=== PATIENT | male | born 1970 | race Caucasian/White ===

== ENCOUNTER 2021-07-11 06:58 | Inpatient (IN) | payer OTHER ==
[2021-07-11] MEDS ORDERED: VANCOMYCIN 1,000 MG in DEXTROSE 5%-WATER - 250 ML IVPB ONE (08:18)
[2021-07-11] MEDS ORDERED: PIPERACILLIN/TAZOB 4.5 GM 4.5 GM in DEXTROSE 5%-WATER - 100 ML IVPB ONE (08:18)
[2021-07-11] MEDS ORDERED: SODIUM CHLORIDE 1,000 ML IV STA ×2 (08:19)
[2021-07-11] MEDS ORDERED: VANCOMYCIN 1 GRAM (PRE-DOCKED) 1,000 MG/250 ML BAG IVPB ONE (08:35)
[2021-07-11] MEDS ORDERED: PIPERACILLIN/TAZOB 4.5 GM 4.5 GM/100 ML BAG IVPB ONE (08:35)
[2021-07-11 08:59] LABS: HEMATOCRIT 34.9 % (35.4-49); HEMOGLOBIN 12.5 GM/dL (11.7-16.9); MCH 30.1 pg (25.7-33.7); MCHC 35.8 g/dl (32.0-35.9); MEAN CELL VOLUME 83.9 fl (80-96); MEAN PLT VOLUME 8.4 fl (7.5-11.1); PLATELET COUNT 111 10^3/uL (134-434); RBC 4.16 M/mm3 (4.00-5.60); RDW 14.8 % (11.9-15.9); WHITE BLOOD COUNT 9.9 K/mm3 (4.0-10.0)
[2021-07-11 09:09] LABS: INR 1.28 (0.83-1.09); PROTHROMBIN TIME (PATIENT) 14.7 SEC (9.7-13.0)
[2021-07-11 09:11] LABS: ACTIVATED PTT 26.5 SECONDS (25.2-36.5)
[2021-07-11 09:12] LABS: VENOUS BASE EXCESS 14.7 mmol/L (-2-2); VENOUS O2 SATURATION 98.4 % (70-80); VENOUS PCO2 32.3 mmHg (38-52)
[2021-07-11 09:14] LABS: VENOUS PH 7.664 (7.310-7.410)
[2021-07-11 09:28] LABS: CHLORIDE 66 mmol/L (98-107)
[2021-07-11 09:30] LABS: CALCIUM 8.8 mg/dL (8.5-10.1)
[2021-07-11 09:31] LABS: BLOOD UREA NITROGEN 34.1 mg/dL (7-18); CO2 38 mmol/L (21-32); GLUCOSE,RANDOM 98 mg/dL (74-106); MAGNESIUM 3.3 mg/dL (1.8-2.4)
[2021-07-11 09:33] LABS: CREATININE 2.3 mg/dL (0.55-1.3)
[2021-07-11 09:34] LABS: PHOSPHOROUS 3.9 mg/dL (2.5-4.9); SGOT/AST 120 U/L (15-37); SGPT/ALT 39 U/L (13-61)
[2021-07-11 09:35] LABS: BILIRUBIN,TOTAL 0.8 mg/dL (0.2-1); TOT PROT 5.6 g/dl (6.4-8.2)
[2021-07-11 09:36] LABS: ALK PHOS 104 U/L (45-117)
[2021-07-11 09:42] LABS: ANION GAP 16 MMOL/L (8-16); SODIUM 120 mmol/L (136-145)
[2021-07-11] MEDS ORDERED: SODIUM CHLORIDE 3% 500 ML/500 ML INFUS.BAG IV ONE ×2 (10:33→10:35)
[2021-07-11] MEDS ORDERED: SODIUM CHLORIDE 3% 500 ML/100 ML INFUS.BAG IV ONE ×2 (10:37→10:38)
[2021-07-11 10:58] LABS: LACTIC ACID 6.8 mmol/L (0.4-2.0)
[2021-07-11] MEDS ORDERED: KCL 10 MEQ IVPB 10 MEQ/100 ML INFUS.BAG IVPB ONE (11:06)
[2021-07-11 11:52] LABS: ANISOCYTOSIS 0; MACROCYTOSIS 0
[2021-07-11 11:53] LABS: PLATELET ESTIMATE SLT DECREASE
[2021-07-11] MEDS: KCL 10 MEQ IVPB 10 MEQ/100 ML INFUS.BAG IVPB SCH ×3 (12:26→12:55)
[2021-07-11 12:33] LABS: CHLORIDE 81 mmol/L (98-107); SODIUM 128 mmol/L (136-145)
[2021-07-11 12:36] LABS: BLOOD UREA NITROGEN 29.9 mg/dL (7-18); CO2 35 mmol/L (21-32); GLUCOSE,RANDOM 86 mg/dL (74-106)
[2021-07-11 12:38] LABS: CREATININE 1.9 mg/dL (0.55-1.3); SGPT/ALT 29 U/L (13-61)
[2021-07-11 12:39] LABS: SGOT/AST 90 U/L (15-37)
[2021-07-11 12:40] LABS: BILIRUBIN,TOTAL 0.7 mg/dL (0.2-1); TOT PROT 4.2 g/dl (6.4-8.2)
[2021-07-11 12:43] LABS: ALBUMIN 1.5 g/dl (3.4-5.0); ALK PHOS 72 U/L (45-117); ANION GAP 12 MMOL/L (8-16); CALCIUM 6.8 mg/dL (8.5-10.1)
[2021-07-11] MEDS ORDERED: POTASSIUM CHLORIDE 40 MEQ in LACTATED RINGERS SOLUTION 1,000 ML IV ONE (15:10)
[2021-07-11 15:12] LABS: COCAINE, UR NEGATIVE (NEGATIVE); METHADONE, UR NEGATIVE (NEGATIVE); OPIATES, URI NEGATIVE (NEGATIVE); PHENCYCLIDINE,URINE NEGATIVE (NEGATIVE); URINE AMPHETAMINES NEGATIVE (NEGATIVE); URINE BARBITURATES NEGATIVE (NEGATIVE); URINE BENZODIAZEPINES NEGATIVE (NEGATIVE)
[2021-07-11] MEDS ORDERED: POTASSIUM CHLORIDE 20 MEQ PREMIX IVPB 100 ML IVPB SCH ×2 (15:15→19:00)
[2021-07-11] MEDS ORDERED: LORazepam 2 MG/ML SDV VIAL IVPUSH ONE (15:41)
[2021-07-11] MEDS: HEPARIN NA (PORCINE) 5,000 UNITS/ML 1ML VIAL SQ SCH (17:10)
[2021-07-11 17:11] LABS: ARTERIAL BLD GAS O2 SATURATION 97.2 % (95-98); ARTERIAL BLOOD GAS BASE EXCESS 11.1 mmol/L (-2-2); ARTERIAL BLOOD GAS PO2 80.2 mmHg (80-100)
[2021-07-11 17:12] LABS: ALLENS TEST POSITIVE
[2021-07-11] MEDS: NOREPINEPHRINE BITARTRATE 16,000 MCG in SODIUM CHLORIDE 484 ML IV SCH (17:15)
[2021-07-11 18:13] LABS: CHLORIDE 77 mmol/L (98-107); SODIUM 125 mmol/L (136-145)
[2021-07-11 18:15] LABS: CALCIUM 7.5 mg/dL (8.5-10.1)
[2021-07-11 18:16] LABS: BLOOD UREA NITROGEN 35.8 mg/dL (7-18); CO2 33 mmol/L (21-32); GLUCOSE,RANDOM 98 mg/dL (74-106)
[2021-07-11 18:19] LABS: CREATININE 2.1 mg/dL (0.55-1.3)
[2021-07-11 18:22] LABS: N-TERMINAL BNP 1970.1 pg/ml (5-125)
[2021-07-11 18:26] LABS: ANION GAP 16 MMOL/L (8-16)
[2021-07-11] MEDS ORDERED: PNEUMOC 13-VAL CONJ-DIP CRM/PF 0.5 ML DISP.SYRIN IM ONE (18:30)
[2021-07-11] MEDS ORDERED: VANCOMYCIN HCL 1,500 MG in DEXTROSE 5%-WATER - 250 ML IVPB SCH (19:00)
[2021-07-11] MEDS: POTASSIUM CHLORIDE 20 MEQ PREMIX IVPB 100 ML IVPB SCH ×3 (20:28→21:31)
[2021-07-11] MEDS ORDERED: PIPERACILLIN/TAZOBACTAM 4.5 GM VIAL IVPB ONE (20:44)
[2021-07-11] MEDS ORDERED: DEXTROSE 5%-WATER 100 ML IVPB ONE (20:44)
[2021-07-11 21:06] LABS: URINE APPEARANCE TURBID; URINE BILIRUBIN MODERATE (NEGATIVE); URINE COLOR DK YELLOW; URINE GLUCOSE (UA) NEGATIVE (NEGATIVE)
[2021-07-11 21:07] LABS: URINE KETONE NEGATIVE (NEGATIVE); URINE LEUK ESTERASE 3+ (NEGATIVE); URINE NITRITE NEGATIVE (NEGATIVE); URINE PROTEIN 100 (NEGATIVE)
[2021-07-11 21:08] LABS: EPI CELLS 17 /uL (0-25.1); HYALINE CASTS 11 /uL (0-3.1); URINE BACTERIA 70 /uL (0-1359); URINE RBC 1397 /uL (0-23.9); URINE WBC 1501 /uL (0-25.8)
[2021-07-11] MEDS: VANCOMYCIN HCL 1,500 MG in DEXTROSE 5%-WATER - 250 ML IVPB SCH (21:28)
[2021-07-11] MEDS: PIPERACILLIN/TAZOB 4.5 GM 4.5 GM in DEXTROSE 5%-WATER 100 ML IVPB SCH (21:29)
[2021-07-11] MEDS: MUPIROCIN 2% TOPICAL OINTMENT FOR DECOLONIZATION NS SCH (21:29)
[2021-07-11] MEDS: CHLORHEXIDINE GLUCONATE 4% CLEANSER FOR DECOLONIZATION TP SCH (21:31)
[2021-07-11 22:21] LABS: MAGNESIUM 2.5 mg/dL (1.8-2.4)
[2021-07-11 22:25] LABS: PHOSPHOROUS 4.8 mg/dL (2.5-4.9)
[2021-07-12] MEDS ORDERED: DEXTROSE 5%-WATER 100 ML IVPB ONE ×3 (00:19→17:08)
[2021-07-12] MEDS ORDERED: PIPERACILLIN/TAZOBACTAM 4.5 GM VIAL IVPB ONE ×4 (00:19→17:08)
[2021-07-12] MEDS: LORazepam 2 MG/ML SDV VIAL IVPUSH PRN ×2 (00:23→17:40)
[2021-07-12] MEDS: HEPARIN NA (PORCINE) 5,000 UNITS/ML 1ML VIAL SQ SCH ×3 (02:33→17:35)
[2021-07-12] MEDS: PIPERACILLIN/TAZOB 4.5 GM 4.5 GM in DEXTROSE 5%-WATER 100 ML IVPB SCH ×3 (02:34→17:37)
[2021-07-12 06:48] LABS: ARTERIAL BLD GAS O2 SATURATION 90.3 % (95-98); ARTERIAL BLOOD GAS BASE EXCESS 9.5 mmol/L (-2-2); ARTERIAL BLOOD GAS PO2 49.2 mmHg (80-100)
[2021-07-12 06:51] LABS: ALLENS TEST POSITIVE
[2021-07-12 07:51] LABS: BASO % 0.5 % (0-2.0); EOS % 0.2 % (0-4.5); HEMATOCRIT 32.5 % (35.4-49); HEMOGLOBIN 11.1 GM/dL (11.7-16.9); LYMPH % 10.3 % (8-40); MCH 29.4 pg (25.7-33.7); MEAN CELL VOLUME 86.5 fl (80-96); MEAN PLT VOLUME 9.2 fl (7.5-11.1); MONO % 4.7 % (3.8-10.2); NEUT % 84.3 % (42.8-82.8); PLATELET COUNT 106 10^3/uL (134-434); RBC 3.76 M/mm3 (4.00-5.60); RDW 14.5 % (11.9-15.9); WHITE BLOOD COUNT 9.2 K/mm3 (4.0-10.0)
[2021-07-12] MEDS ORDERED: VANCOMYCIN PREMIX 1.5 GM 1,500 MG/300 ML BAG IVPB SCH (07:58)
[2021-07-12 08:42] LABS: CHLORIDE 81 mmol/L (98-107); SODIUM 127 mmol/L (136-145)
[2021-07-12 08:47] LABS: BLOOD UREA NITROGEN 37.1 mg/dL (7-18); CALCIUM 7.8 mg/dL (8.5-10.1); CO2 33 mmol/L (21-32); GLUCOSE,RANDOM 90 mg/dL (74-106); MAGNESIUM 2.8 mg/dL (1.8-2.4)
[2021-07-12 08:50] LABS: CREATININE 1.9 mg/dL (0.55-1.3)
[2021-07-12 08:51] LABS: ANION GAP 13 MMOL/L (8-16); PHOSPHOROUS 4.5 mg/dL (2.5-4.9)
[2021-07-12] MEDS ORDERED: POTASSIUM CHLORIDE 20 MEQ PREMIX IVPB 100 ML IVPB SCH (08:52)
[2021-07-12] MEDS: POTASSIUM CHLORIDE 20 MEQ PREMIX IVPB 100 ML IVPB SCH ×8 (09:20→22:47)
[2021-07-12] MEDS: VANCOMYCIN HCL 1,500 MG in DEXTROSE 5%-WATER - 250 ML IVPB SCH (09:48)
[2021-07-12] MEDS: MUPIROCIN 2% TOPICAL OINTMENT FOR DECOLONIZATION NS SCH ×2 (10:58→22:42)
[2021-07-12 12:08] LABS: SARS-CoV-2 NAA Not Detected (Not Detected)
[2021-07-12] MEDS ORDERED: LORazepam 2 MG/ML SDV VIAL IVPUSH ONE (12:58)
[2021-07-12] MEDS ORDERED: POTASSIUM CHLORIDE 40 MEQ in LACTATED RINGERS SOLUTION 1,000 ML IV ONE (14:00)
[2021-07-12 14:40] LABS: CHLORIDE 86 mmol/L (98-107); SODIUM 129 mmol/L (136-145)
[2021-07-12 14:41] LABS: CALCIUM 7.2 mg/dL (8.5-10.1); CALCIUM 7.7 mg/dL (8.5-10.1); CHLORIDE 88 mmol/L (98-107); SODIUM 131 mmol/L (136-145)
[2021-07-12 14:42] LABS: CO2 31 mmol/L (21-32); GLUCOSE,RANDOM 83 mg/dL (74-106); GLUCOSE,RANDOM 87 mg/dL (74-106)
[2021-07-12 14:45] LABS: CREATININE 1.5 mg/dL (0.55-1.3)
[2021-07-12 14:47] LABS: ANION GAP 13 MMOL/L (8-16)
[2021-07-12] MEDS: THIAMINE HCL 200 MG/2 ML VIAL IVPB SCH (14:54)
[2021-07-12 14:58] LABS: ANION GAP 12 MMOL/L (8-16)
[2021-07-12 15:43] VITALS: BMI 27.4
[2021-07-12] MEDS: NOREPINEPHRINE BITARTRATE 16,000 MCG in SODIUM CHLORIDE 484 ML IV SCH (17:34)
[2021-07-12] MEDS: CHLORHEXIDINE GLUCONATE 4% CLEANSER FOR DECOLONIZATION TP SCH (22:42)
[2021-07-13 01:34] LABS: CALCIUM 7.5 mg/dL (8.5-10.1)
[2021-07-13 01:35] LABS: BLOOD UREA NITROGEN 26.8 mg/dL (7-18)
[2021-07-13 01:38] LABS: CREATININE 1.3 mg/dL (0.55-1.3)
[2021-07-13] MEDS ORDERED: DEXTROSE 5%-WATER 100 ML IVPB ONE (01:51)
[2021-07-13] MEDS ORDERED: PIPERACILLIN/TAZOBACTAM 4.5 GM VIAL IVPB ONE (01:51)
[2021-07-13] MEDS: HEPARIN NA (PORCINE) 5,000 UNITS/ML 1ML VIAL SQ SCH ×3 (02:31→17:08)
[2021-07-13] MEDS: PIPERACILLIN/TAZOB 4.5 GM 4.5 GM in DEXTROSE 5%-WATER 100 ML IVPB SCH (02:31)
[2021-07-13] MEDS: SODIUM CHLORIDE 1,000 ML IV SCH (06:56)
[2021-07-13 07:25] LABS: BASO % 0.6 % (0-2.0); EOS % 0.2 % (0-4.5); HEMATOCRIT 31.9 % (35.4-49); HEMOGLOBIN 10.8 GM/dL (11.7-16.9); LYMPH % 10.6 % (8-40); MCH 29.6 pg (25.7-33.7); MCHC 33.8 g/dl (32.0-35.9); MEAN CELL VOLUME 87.5 fl (80-96); MEAN PLT VOLUME 8.9 fl (7.5-11.1); MONO % 4.5 % (3.8-10.2); NEUT % 84.1 % (42.8-82.8); PLATELET COUNT 82 10^3/uL (134-434); RBC 3.65 M/mm3 (4.00-5.60); RDW 14.4 % (11.9-15.9); WHITE BLOOD COUNT 7.6 K/mm3 (4.0-10.0)
[2021-07-13 07:42] LABS: CALCIUM 7.4 mg/dL (8.5-10.1)
[2021-07-13 07:43] LABS: BLOOD UREA NITROGEN 26.3 mg/dL (7-18); MAGNESIUM 2.5 mg/dL (1.8-2.4)
[2021-07-13 07:46] LABS: CREATININE 1.1 mg/dL (0.55-1.3)
[2021-07-13 07:47] LABS: PHOSPHOROUS 2.6 mg/dL (2.5-4.9)
[2021-07-13 08:38] LABS: ARTERIAL BLD GAS O2 SATURATION 97.1 % (95-98); ARTERIAL BLOOD GAS PO2 73.7 mmHg (80-100)
[2021-07-13 08:45] LABS: ALLENS TEST POSITIVE
[2021-07-13 08:46] LABS: ARTERIAL BLOOD GAS pH 7.618 (7.350-7.450)
[2021-07-13] MEDS: MUPIROCIN 2% TOPICAL OINTMENT FOR DECOLONIZATION NS SCH ×2 (09:09→21:01)
[2021-07-13] MEDS: THIAMINE HCL 200 MG/2 ML VIAL IVPB SCH (09:10)
[2021-07-13] MEDS: KCL 10 MEQ IVPB 10 MEQ/100 ML INFUS.BAG IVPB SCH ×4 (10:48→18:13)
[2021-07-13] MEDS: LORazepam 2 MG/ML SDV VIAL IVPUSH PRN (11:52)
[2021-07-13 16:53] LABS: CALCIUM 7.6 mg/dL (8.5-10.1)
[2021-07-13 16:54] LABS: BLOOD UREA NITROGEN 24.6 mg/dL (7-18)
[2021-07-13 16:57] LABS: CREATININE 1.1 mg/dL (0.55-1.3)
[2021-07-13] MEDS: ACETAMINOPHEN 1000 MG/100 ML BAG IVPB PRN (18:32)
[2021-07-13 20:56] LABS: BLOOD UREA NITROGEN 25.2 mg/dL (7-18); CALCIUM 7.6 mg/dL (8.5-10.1); CREATININE 0.9 mg/dL (0.55-1.3)
[2021-07-13] MEDS: CHLORHEXIDINE GLUCONATE 4% CLEANSER FOR DECOLONIZATION TP SCH (21:01)
[2021-07-14 07:18] LABS: CALCIUM 7.4 mg/dL (8.5-10.1)
[2021-07-14 07:19] LABS: BLOOD UREA NITROGEN 19.9 mg/dL (7-18); MAGNESIUM 2.1 mg/dL (1.8-2.4)
[2021-07-14 07:20] LABS: BASO % 0.4 % (0-2.0); EOS % 0.6 % (0-4.5); HEMOGLOBIN 10.6 GM/dL (11.7-16.9); LYMPH % 10.6 % (8-40); MCH 30.4 pg (25.7-33.7); MCHC 34.3 g/dl (32.0-35.9); MEAN CELL VOLUME 88.6 fl (80-96); MEAN PLT VOLUME 8.7 fl (7.5-11.1); MONO % 5.1 % (3.8-10.2); NEUT % 83.3 % (42.8-82.8); PLATELET COUNT 63 10^3/uL (134-434); RDW 14.4 % (11.9-15.9); WHITE BLOOD COUNT 9.8 K/mm3 (4.0-10.0)
[2021-07-14 07:22] LABS: CREATININE 0.6 mg/dL (0.55-1.3)
[2021-07-14 07:23] LABS: PHOSPHOROUS 3.4 mg/dL (2.5-4.9)
[2021-07-14] MEDS: LORazepam 2 MG/ML SDV VIAL IVPUSH PRN ×3 (09:18→19:45)
[2021-07-14] MEDS: KCL 10 MEQ IVPB 10 MEQ/100 ML INFUS.BAG IVPB SCH (09:33)
[2021-07-14] MEDS: MUPIROCIN 2% TOPICAL OINTMENT FOR DECOLONIZATION NS SCH ×2 (09:33→21:39)
[2021-07-14] MEDS: THIAMINE HCL 200 MG/2 ML VIAL IVPB SCH (09:34)
[2021-07-14] MEDS ORDERED: MULTIVITAMINS (DAILY MVI) TABLET (FP) PO SCH (10:00)
[2021-07-14] MEDS: SODIUM CHLORIDE 1,000 ML IV SCH (13:07)
[2021-07-14] MEDS: CHLORHEXIDINE GLUCONATE 4% CLEANSER FOR DECOLONIZATION TP SCH (21:39)
[2021-07-14] MEDS: NYSTATIN 100,000 UNIT/GM TOPICAL CREAM 15 GM TUBE TP SCH (21:40)
[2021-07-14] MEDS: ACETAMINOPHEN 1000 MG/100 ML BAG IVPB PRN (21:41)
[2021-07-15] MEDS ORDERED: SODIUM CHLORIDE 1,000 ML IV SCH (05:04)
[2021-07-15] MEDS ORDERED: ACETAMINOPHEN 1000 MG/100 ML BAG IVPB PRN (05:04)
[2021-07-15 09:48] LABS: BASO % 0.7 % (0-2.0); EOS % 1.1 % (0-4.5); HEMATOCRIT 28.6 % (35.4-49); HEMOGLOBIN 9.7 GM/dL (11.7-16.9); LYMPH % 12.7 % (8-40); MCH 30.2 pg (25.7-33.7); MCHC 33.8 g/dl (32.0-35.9); MEAN CELL VOLUME 89.2 fl (80-96); MEAN PLT VOLUME 9.1 fl (7.5-11.1); MONO % 6.7 % (3.8-10.2); NEUT % 78.8 % (42.8-82.8); PLATELET COUNT 55 10^3/uL (134-434); RBC 3.21 M/mm3 (4.00-5.60); RDW 14.6 % (11.9-15.9); WHITE BLOOD COUNT 9.5 K/mm3 (4.0-10.0)
[2021-07-15] MEDS ORDERED: MUPIROCIN 2% TOPICAL OINTMENT FOR DECOLONIZATION NS SCH (10:00)
[2021-07-15 10:07] LABS: MAGNESIUM 1.9 mg/dL (1.8-2.4)
[2021-07-15 10:11] LABS: PHOSPHOROUS 4.1 mg/dL (2.5-4.9)
[2021-07-15] MEDS: MULTIVITAMINS (DAILY MVI) TABLET (FP) PO SCH ×2 (10:18→10:30)
[2021-07-15] MEDS: THIAMINE HCL 200 MG/2 ML VIAL IVPB SCH (10:18)
[2021-07-15 13:17] LABS: CALCIUM 7.6 mg/dL (8.5-10.1)
[2021-07-15 13:18] LABS: BLOOD UREA NITROGEN 13.5 mg/dL (7-18)
[2021-07-15 13:21] LABS: CREATININE 0.5 mg/dL (0.55-1.3)
[2021-07-15] MEDS ORDERED: POTASSIUM CHLORIDE TABS 20 MEQ TABLET.ER (FP) PO ONE (13:28)
[2021-07-15] MEDS: LORazepam 2 MG/ML SDV VIAL IVPUSH PRN ×2 (13:36→17:21)
[2021-07-15] MEDS ORDERED: D5-1/2NS+20 MEQ KCL - 20 MEQ/1,000 ML INFUS.BAG IV SCH (13:45)
[2021-07-15 13:53] LABS: INR 1.2 (0.83-1.09); PROTHROMBIN TIME (PATIENT) 13.8 SEC (9.7-13.0)
[2021-07-15 13:56] LABS: ACTIVATED PTT 29.2 SECONDS (25.2-36.5)
[2021-07-15] MEDS: KCL 10 MEQ IVPB 10 MEQ/100 ML INFUS.BAG IVPB SCH ×3 (14:10→17:14)
[2021-07-15] MEDS: NYSTATIN 100,000 UNIT/GM TOPICAL CREAM 15 GM TUBE TP SCH ×2 (17:15→23:51)
[2021-07-15] MEDS ORDERED: CHLORHEXIDINE GLUCONATE 4% CLEANSER FOR DECOLONIZATION TP SCH (22:00)
[2021-07-16] MEDS: D5-1/2NS+20 MEQ KCL - 20 MEQ/1,000 ML INFUS.BAG IV SCH ×2 (00:11→12:54)
[2021-07-16] MEDS: LORazepam 2 MG/ML SDV VIAL IVPUSH PRN ×3 (00:47→12:24)
[2021-07-16] MEDS: NYSTATIN 100,000 UNIT/GM TOPICAL CREAM 15 GM TUBE TP SCH ×2 (09:38→21:01)
[2021-07-16] MEDS: MULTIVITAMINS (DAILY MVI) TABLET (FP) PO SCH (09:38)
[2021-07-16] MEDS: THIAMINE HCL 200 MG/2 ML VIAL IVPB SCH ×2 (09:53→21:01)
[2021-07-16] MEDS ORDERED: BUDESONIDE/FORMETEROL FUMARATE 80/4.5 mcg INHALER IH SCH (10:00)
[2021-07-16 11:19] LABS: BASO % 0.9 % (0-2.0); HEMATOCRIT 32.9 % (35.4-49); HEMOGLOBIN 10.9 GM/dL (11.7-16.9); LYMPH % 17.3 % (8-40); MCH 29.9 pg (25.7-33.7); MCHC 33.3 g/dl (32.0-35.9); MEAN CELL VOLUME 89.9 fl (80-96); MEAN PLT VOLUME 8.4 fl (7.5-11.1); MONO % 8.2 % (3.8-10.2); NEUT % 71.6 % (42.8-82.8); PLATELET COUNT 66 10^3/uL (134-434); RBC 3.66 M/mm3 (4.00-5.60); RDW 14.5 % (11.9-15.9); WHITE BLOOD COUNT 7.3 K/mm3 (4.0-10.0)
[2021-07-16 11:36] LABS: BLOOD UREA NITROGEN 8.9 mg/dL (7-18); CALCIUM 8.1 mg/dL (8.5-10.1); MAGNESIUM 1.8 mg/dL (1.8-2.4)
[2021-07-16 11:39] LABS: CREATININE 0.6 mg/dL (0.55-1.3); PHOSPHOROUS 2.7 mg/dL (2.5-4.9)
[2021-07-16 11:41] LABS: BILIRUBIN,TOTAL 0.5 mg/dL (0.2-1)
[2021-07-16 11:43] LABS: ALBUMIN 1.8 g/dl (3.4-5.0)
[2021-07-16] MEDS: ALBUTEROL SO4 2.5/IPRATROPIUM 0.5 INH SOL 3 ML VIAL.NEB. NEB SCH ×2 (12:06→15:08)
[2021-07-16] MEDS: ALBUTEROL SO4 HFA INHALER IH SCH ×2 (12:40→13:00)
[2021-07-16] MEDS ORDERED: POTASSIUM CHLORIDE 10 MEQ PREMIX IVPB (POTASSIUM RIDER) IVPB SCH (12:45)
[2021-07-16] MEDS ORDERED: PANTOPRAZOLE SODIUM 40 MG VIAL IVPUSH SCH (13:00)
[2021-07-16] MEDS ORDERED: MULTIVIT INJ. ADULT COMBO WITH VIT K 1 COMBO 10 ML VIAL IV SCH (13:00)
[2021-07-16] MEDS ORDERED: THIAMINE HCL 200 MG/2 ML VIAL IVPB ONE (14:00)
[2021-07-16] MEDS ORDERED: PIPERACILLIN/TAZOBACTAM 3.375 GM VIAL IVPB ONE ×2 (14:13→19:38)
[2021-07-16] MEDS ORDERED: DEXTROSE 5%-WATER - 50 ML IVPB ONE ×2 (14:13→19:38)
[2021-07-16] MEDS ORDERED: PIPERACILLIN/TAZOB 3.375 GM 3.375 GM in DEXTROSE 5%-WATER - 50 ML IVPB ONE (14:15)
[2021-07-16 14:32] LABS: ARTERIAL BLD GAS O2 SATURATION 95.3 % (95-98); ARTERIAL BLOOD GAS BASE EXCESS 5.4 mmol/L (-2-2); ARTERIAL BLOOD GAS PO2 68.1 mmHg (80-100); ARTERIAL BLOOD GAS pH 7.518 (7.350-7.450)
[2021-07-16 14:33] LABS: ALLENS TEST POSITIVE
[2021-07-16] MEDS ORDERED: SUCCINYLCHOLINE CHLORIDE 200 MG/10 ML VIAL ONE (14:55)
[2021-07-16] MEDS ORDERED: ETOMIDATE 20 MG/10 ML AMPUL IVPUSH ONE ×2 (14:55→15:45)
[2021-07-16] MEDS ORDERED: PROPOFOL 1,000,000 MCG/100 ML VIAL ONE (15:23)
[2021-07-16] MEDS ORDERED: SUCCINYLCHOLINE CHLORIDE 200 MG/10 ML SYRINGE IVPUSH ONE (15:45)
[2021-07-16] MEDS: PROPOFOL 1,000,000 MCG/100 ML VIAL IVPB SCH ×2 (15:46→20:01)
[2021-07-16] MEDS ORDERED: LACTATED RINGERS SOLUTION 1,000 ML/1,000 ML INFUS.BAG IV ONE (16:04)
[2021-07-16] MEDS: MIDAZOLAM IN 0.9 % SOD.CHLORID 100 MG/100 ML PLAST..BAG IVPB SCH (16:19)
[2021-07-16] MEDS: KCL 10 MEQ IVPB 10 MEQ/100 ML INFUS.BAG IVPB SCH ×3 (17:19→18:31)
[2021-07-16] MEDS ORDERED: ROCURONIUM BROMIDE 50 MG/5 ML VIAL IV ONE (17:46)
[2021-07-16] MEDS: PIPERACILLIN/TAZOB 3.375 GM 3.375 GM in DEXTROSE 5%-WATER - 50 ML IVPB SCH (20:00)
[2021-07-16] MEDS: AMINO ACIDS 4.25%/D5W 1,000 ML IV SCH (20:00)
[2021-07-16] MEDS: MUPIROCIN 2% TOPICAL OINTMENT FOR DECOLONIZATION NS SCH (21:00)
[2021-07-16] MEDS: CHLORHEXIDINE GLUCONATE 4% CLEANSER FOR DECOLONIZATION TP SCH (21:01)
[2021-07-17] MEDS ORDERED: PIPERACILLIN/TAZOBACTAM 3.375 GM VIAL IVPB ONE ×2 (00:33→08:48)
[2021-07-17] MEDS ORDERED: DEXTROSE 5%-WATER - 50 ML IVPB ONE ×2 (00:33→08:49)
[2021-07-17] MEDS: PROPOFOL 1,000,000 MCG/100 ML VIAL IVPB SCH ×5 (00:50→22:55)
[2021-07-17] MEDS: PIPERACILLIN/TAZOB 3.375 GM 3.375 GM in DEXTROSE 5%-WATER - 50 ML IVPB SCH (01:12)
[2021-07-17] MEDS: AMINO ACIDS 4.25%/D5W 1,000 ML IV SCH (01:52)
[2021-07-17] MEDS: THIAMINE HCL 200 MG/2 ML VIAL IVPB SCH ×3 (05:02→22:47)
[2021-07-17 07:03] LABS: BASO % 0.7 % (0-2.0); EOS % 1.6 % (0-4.5); HEMATOCRIT 25.9 % (35.4-49); HEMOGLOBIN 8.3 GM/dL (11.7-16.9); MCH 29.4 pg (25.7-33.7); MCHC 32.2 g/dl (32.0-35.9); MEAN CELL VOLUME 91.4 fl (80-96); MEAN PLT VOLUME 8.9 fl (7.5-11.1); NEUT % 76.7 % (42.8-82.8); PLATELET COUNT 62 10^3/uL (134-434); RBC 2.84 M/mm3 (4.00-5.60); RDW 14.7 % (11.9-15.9); WHITE BLOOD COUNT 8.4 K/mm3 (4.0-10.0)
[2021-07-17 07:21] LABS: BLOOD UREA NITROGEN 9.2 mg/dL (7-18); MAGNESIUM 1.5 mg/dL (1.8-2.4)
[2021-07-17 07:22] LABS: CALCIUM 7.4 mg/dL (8.5-10.1)
[2021-07-17 07:23] LABS: CREATININE 0.6 mg/dL (0.55-1.3); PHOSPHOROUS 3.2 mg/dL (2.5-4.9)
[2021-07-17 07:26] LABS: BILIRUBIN,TOTAL 0.5 mg/dL (0.2-1); TOT PROT 3.9 g/dl (6.4-8.2)
[2021-07-17] MEDS ORDERED: ACETAMINOPHEN 1000 MG/100 ML BAG IVPB PRN (08:01)
[2021-07-17 08:24] LABS: ALBUMIN 1.4 g/dl (3.4-5.0)
[2021-07-17] MEDS: D5-1/2NS+20 MEQ KCL - 20 MEQ/1,000 ML INFUS.BAG IV SCH (08:51)
[2021-07-17] MEDS: MIDAZOLAM IN 0.9 % SOD.CHLORID 100 MG/100 ML PLAST..BAG IVPB SCH ×2 (08:52→22:54)
[2021-07-17] MEDS: NYSTATIN 100,000 UNIT/GM TOPICAL CREAM 15 GM TUBE TP SCH ×2 (09:06→22:47)
[2021-07-17] MEDS: MUPIROCIN 2% TOPICAL OINTMENT FOR DECOLONIZATION NS SCH ×2 (09:06→22:47)
[2021-07-17] MEDS: PANTOPRAZOLE SODIUM 40 MG VIAL IVPUSH SCH (09:06)
[2021-07-17] MEDS ORDERED: MAGNESIUM 2GM/50ML STERILE WATER IVPB IVPB ONE (09:30)
[2021-07-17] MEDS ORDERED: PIPERACILLIN/TAZOB 3.375 GM 3.375 GM in DEXTROSE 5%-WATER - 50 ML IVPB SCH (10:00)
[2021-07-17] MEDS ORDERED: AMINO ACIDS 4.25%/D5W 1,000 ML IV SCH ×2 (11:30→14:45)
[2021-07-17] MEDS: MULTIVIT INJ. ADULT COMBO WITH VIT K 1 COMBO 10 ML VIAL IV SCH (11:31)
[2021-07-17] MEDS: POTASSIUM CHLORIDE 20 MEQ PREMIX IVPB 100 ML IVPB SCH ×3 (11:33→16:52)
[2021-07-17] MEDS ORDERED: AMPICILLIN NA/SULBACTAM NA 3 GM VIAL ONE (21:20)
[2021-07-17] MEDS ORDERED: SODIUM CHLORIDE 100 ML IVPB ONE (21:21)
[2021-07-17] MEDS: POTASSIUM CHLORIDE 20 MEQ in AMINO ACIDS 4.25%/D5W 1,000 ML IV SCH (22:46)
[2021-07-17] MEDS: AMPICILLIN NA/SULBACTAM NA 3 GM in SODIUM CHLORIDE 100 ML IVPB SCH (22:47)
[2021-07-17] MEDS: CHLORHEXIDINE GLUCONATE 4% CLEANSER FOR DECOLONIZATION TP SCH (22:56)
[2021-07-18] MEDS ORDERED: AMPICILLIN NA/SULBACTAM NA 3 GM VIAL ONE ×4 (02:31→21:37)
[2021-07-18] MEDS ORDERED: SODIUM CHLORIDE 100 ML IVPB ONE ×4 (02:31→21:37)
[2021-07-18] MEDS: AMPICILLIN NA/SULBACTAM NA 3 GM in SODIUM CHLORIDE 100 ML IVPB SCH ×4 (02:35→21:52)
[2021-07-18] MEDS: D5-1/2NS+20 MEQ KCL - 20 MEQ/1,000 ML INFUS.BAG IV SCH ×3 (04:09→17:34)
[2021-07-18] MEDS: THIAMINE HCL 200 MG/2 ML VIAL IVPB SCH ×2 (05:12→13:53)
[2021-07-18] MEDS ORDERED: ALTEPLASE (CATHFLO) 2 MG/2 ML VIAL NR ONE (05:30)
[2021-07-18] MEDS: MIDAZOLAM IN 0.9 % SOD.CHLORID 100 MG/100 ML PLAST..BAG IVPB SCH ×2 (06:20→21:52)
[2021-07-18 06:58] LABS: BASO % 0.7 % (0-2.0); EOS % 1.7 % (0-4.5); HEMATOCRIT 25.8 % (35.4-49); HEMOGLOBIN 8.7 GM/dL (11.7-16.9); LYMPH % 13.1 % (8-40); MCH 30.3 pg (25.7-33.7); MCHC 33.6 g/dl (32.0-35.9); MEAN CELL VOLUME 90.3 fl (80-96); MEAN PLT VOLUME 8.8 fl (7.5-11.1); MONO % 8.4 % (3.8-10.2); NEUT % 76.1 % (42.8-82.8); PLATELET COUNT 82 10^3/uL (134-434); RBC 2.86 M/mm3 (4.00-5.60); RDW 14.9 % (11.9-15.9); WHITE BLOOD COUNT 7.9 K/mm3 (4.0-10.0)
[2021-07-18 07:15] LABS: CALCIUM 7.1 mg/dL (8.5-10.1)
[2021-07-18 07:16] LABS: ALBUMIN 1.4 g/dl (3.4-5.0); BLOOD UREA NITROGEN 9.1 mg/dL (7-18)
[2021-07-18 07:18] LABS: CREATININE 0.5 mg/dL (0.55-1.3)
[2021-07-18 07:20] LABS: BILIRUBIN,TOTAL 0.6 mg/dL (0.2-1); TOT PROT 4.1 g/dl (6.4-8.2)
[2021-07-18] MEDS: PROPOFOL 1,000,000 MCG/100 ML VIAL IVPB SCH ×4 (08:38→19:40)
[2021-07-18] MEDS: PANTOPRAZOLE SODIUM 40 MG VIAL IVPUSH SCH (09:08)
[2021-07-18] MEDS: NYSTATIN 100,000 UNIT/GM TOPICAL CREAM 15 GM TUBE TP SCH ×2 (09:16→21:52)
[2021-07-18] MEDS: MUPIROCIN 2% TOPICAL OINTMENT FOR DECOLONIZATION NS SCH ×2 (09:16→21:52)
[2021-07-18 09:41] LABS: MAGNESIUM 1.7 mg/dL (1.8-2.4)
[2021-07-18 09:44] LABS: PHOSPHOROUS 3.6 mg/dL (2.5-4.9)
[2021-07-18] MEDS: POTASSIUM CHLORIDE 20 MEQ in AMINO ACIDS 4.25%/D5W 1,000 ML IV SCH (11:27)
[2021-07-18] MEDS: MULTIVIT INJ. ADULT COMBO WITH VIT K 1 COMBO 10 ML VIAL IV SCH (11:27)
[2021-07-18] MEDS ORDERED: MAGNESIUM SULF 50% (8.12 MEQ/2 ML-1 GM VIAL) IVPB ONE (11:39)
[2021-07-18] MEDS: CHLORHEXIDINE GLUCONATE 4% CLEANSER FOR DECOLONIZATION TP SCH (21:52)
[2021-07-19] MEDS ORDERED: AMPICILLIN NA/SULBACTAM NA 3 GM VIAL ONE ×4 (00:43→21:18)
[2021-07-19] MEDS ORDERED: SODIUM CHLORIDE 100 ML IVPB ONE ×4 (00:44→21:18)
[2021-07-19] MEDS: AMPICILLIN NA/SULBACTAM NA 3 GM in SODIUM CHLORIDE 100 ML IVPB SCH ×4 (02:08→21:26)
[2021-07-19] MEDS: D5-1/2NS+20 MEQ KCL - 20 MEQ/1,000 ML INFUS.BAG IV SCH ×2 (05:59→19:18)
[2021-07-19] MEDS: PROPOFOL 1,000,000 MCG/100 ML VIAL IVPB SCH (06:00)
[2021-07-19 07:54] LABS: BASO % 1.2 % (0-2.0); EOS % 2.4 % (0-4.5); HEMATOCRIT 27.2 % (35.4-49); HEMOGLOBIN 9.1 GM/dL (11.7-16.9); MCH 29.9 pg (25.7-33.7); MCHC 33.6 g/dl (32.0-35.9); MEAN CELL VOLUME 89.2 fl (80-96); MEAN PLT VOLUME 8.8 fl (7.5-11.1); MONO % 9.5 % (3.8-10.2); NEUT % 63.9 % (42.8-82.8); PLATELET COUNT 119 10^3/uL (134-434); RBC 3.05 M/mm3 (4.00-5.60); WHITE BLOOD COUNT 4.9 K/mm3 (4.0-10.0)
[2021-07-19 08:14] LABS: CALCIUM 7.6 mg/dL (8.5-10.1)
[2021-07-19 08:16] LABS: ALBUMIN 1.5 g/dl (3.4-5.0); BLOOD UREA NITROGEN 5.6 mg/dL (7-18); MAGNESIUM 1.5 mg/dL (1.8-2.4)
[2021-07-19 08:19] LABS: CREATININE 0.4 mg/dL (0.55-1.3)
[2021-07-19 08:20] LABS: BILIRUBIN,TOTAL 0.4 mg/dL (0.2-1); TOT PROT 4.6 g/dl (6.4-8.2)
[2021-07-19] MEDS ORDERED: MAGNESIUM SULF 50% (8.12 MEQ/2 ML-1 GM VIAL) IVPB ONE (08:30)
[2021-07-19 09:00] LABS: ANISOCYTOSIS 2+; MACROCYTOSIS 0; PLATELET ESTIMATE DECREASED
[2021-07-19] MEDS: PANTOPRAZOLE SODIUM 40 MG VIAL IVPUSH SCH (10:01)
[2021-07-19] MEDS: NYSTATIN 100,000 UNIT/GM TOPICAL CREAM 15 GM TUBE TP SCH ×2 (10:01→21:26)
[2021-07-19] MEDS: MUPIROCIN 2% TOPICAL OINTMENT FOR DECOLONIZATION NS SCH ×2 (10:01→21:26)
[2021-07-19] MEDS: MULTIVIT INJ. ADULT COMBO WITH VIT K 1 COMBO 10 ML VIAL IV SCH (14:18)
[2021-07-19] MEDS: DEXMEDETOMIDINE IN 0.9 % NACL 400 MCG/100 ML VIAL IVPB SCH (14:27)
[2021-07-19] MEDS: CHLORHEXIDINE GLUCONATE 4% CLEANSER FOR DECOLONIZATION TP SCH (21:26)
[2021-07-20] MEDS ORDERED: AMPICILLIN NA/SULBACTAM NA 3 GM VIAL ONE ×4 (01:17→21:03)
[2021-07-20] MEDS ORDERED: SODIUM CHLORIDE 100 ML IVPB ONE ×4 (01:17→21:03)
[2021-07-20] MEDS: AMPICILLIN NA/SULBACTAM NA 3 GM in SODIUM CHLORIDE 100 ML IVPB SCH ×4 (02:08→21:26)
[2021-07-20] MEDS: DEXMEDETOMIDINE IN 0.9 % NACL 400 MCG/100 ML VIAL IVPB SCH (07:07)
[2021-07-20] MEDS: D5-1/2NS+20 MEQ KCL - 20 MEQ/1,000 ML INFUS.BAG IV SCH ×2 (08:12→21:28)
[2021-07-20] MEDS: NYSTATIN 100,000 UNIT/GM TOPICAL CREAM 15 GM TUBE TP SCH ×2 (09:49→21:27)
[2021-07-20] MEDS: MUPIROCIN 2% TOPICAL OINTMENT FOR DECOLONIZATION NS SCH ×2 (09:49→21:27)
[2021-07-20] MEDS: PANTOPRAZOLE SODIUM 40 MG VIAL IVPUSH SCH (09:49)
[2021-07-20] MEDS: CHLORHEXIDINE GLUCONATE 4% CLEANSER FOR DECOLONIZATION TP SCH (21:27)
[2021-07-21] MEDS ORDERED: AMPICILLIN NA/SULBACTAM NA 3 GM VIAL ONE ×4 (01:06→20:23)
[2021-07-21] MEDS ORDERED: SODIUM CHLORIDE 100 ML IVPB ONE ×4 (01:06→20:23)
[2021-07-21] MEDS: AMPICILLIN NA/SULBACTAM NA 3 GM in SODIUM CHLORIDE 100 ML IVPB SCH ×4 (02:20→20:26)
[2021-07-21 08:09] LABS: HEMATOCRIT 26.4 % (35.4-49); HEMOGLOBIN 8.8 GM/dL (11.7-16.9); MCH 29.5 pg (25.7-33.7); MCHC 33.4 g/dl (32.0-35.9); MEAN CELL VOLUME 88.4 fl (80-96); MEAN PLT VOLUME 7.9 fl (7.5-11.1); PLATELET COUNT 206 10^3/uL (134-434); RBC 2.99 M/mm3 (4.00-5.60); RDW 14.9 % (11.9-15.9); WHITE BLOOD COUNT 5.8 K/mm3 (4.0-10.0)
[2021-07-21 08:10] LABS: ALBUMIN 1.8 g/dl (3.4-5.0); BLOOD UREA NITROGEN 3.7 mg/dL (7-18); CALCIUM 7.8 mg/dL (8.5-10.1); MAGNESIUM 1.7 mg/dL (1.8-2.4)
[2021-07-21 08:13] LABS: CREATININE 0.4 mg/dL (0.55-1.3); PHOSPHOROUS 3.4 mg/dL (2.5-4.9)
[2021-07-21 08:15] LABS: BILIRUBIN,TOTAL 0.5 mg/dL (0.2-1); TOT PROT 4.9 g/dl (6.4-8.2)
[2021-07-21] MEDS: MUPIROCIN 2% TOPICAL OINTMENT FOR DECOLONIZATION NS SCH (09:08)
[2021-07-21] MEDS: PANTOPRAZOLE SODIUM 40 MG VIAL IVPUSH SCH (09:08)
[2021-07-21] MEDS: NYSTATIN 100,000 UNIT/GM TOPICAL CREAM 15 GM TUBE TP SCH ×2 (09:08→21:29)
[2021-07-21] MEDS ORDERED: MAGNESIUM 1GM/D5W - 1 GM/100 ML IVPB IVPB ONE (12:00)
[2021-07-21] MEDS: D5-1/2NS+20 MEQ KCL - 20 MEQ/1,000 ML INFUS.BAG IV SCH ×2 (14:32→20:13)
[2021-07-21] MEDS ORDERED: ACETAMINOPHEN 1000 MG/100 ML BAG IVPB PRN (19:16)
[2021-07-21] MEDS ORDERED: D5-1/2NS+20 MEQ KCL - 20 MEQ/1,000 ML INFUS.BAG IV SCH (19:16)
[2021-07-21] MEDS ORDERED: MUPIROCIN 2% TOPICAL OINTMENT FOR DECOLONIZATION NS SCH (22:00)
[2021-07-21] MEDS ORDERED: CHLORHEXIDINE GLUCONATE 4% CLEANSER FOR DECOLONIZATION TP SCH (22:00)
[2021-07-22] MEDS ORDERED: SODIUM CHLORIDE 100 ML IVPB ONE ×4 (00:37→20:08)
[2021-07-22] MEDS ORDERED: AMPICILLIN NA/SULBACTAM NA 3 GM VIAL ONE ×4 (00:37→20:08)
[2021-07-22] MEDS: AMPICILLIN NA/SULBACTAM NA 3 GM in SODIUM CHLORIDE 100 ML IVPB SCH ×4 (01:59→20:24)
[2021-07-22] MEDS: D5-1/2NS+20 MEQ KCL - 20 MEQ/1,000 ML INFUS.BAG IV SCH ×2 (04:09→20:23)
[2021-07-22] MEDS: NYSTATIN 100,000 UNIT/GM TOPICAL CREAM 15 GM TUBE TP SCH ×2 (10:28→21:29)
[2021-07-22] MEDS: PANTOPRAZOLE SODIUM 40 MG VIAL IVPUSH SCH (10:28)
[2021-07-22] MEDS ORDERED: MAGNESIUM 1GM/D5W 100ML - 100 ML IVPB IVPB ONE (17:50)
[2021-07-22] MEDS: amLODIPine BESYLATE 10 MG TABLET (FP) PO SCH (18:34)
[2021-07-23] MEDS ORDERED: SODIUM CHLORIDE 100 ML IVPB ONE (00:14)
[2021-07-23] MEDS ORDERED: AMPICILLIN NA/SULBACTAM NA 3 GM VIAL ONE (00:14)
[2021-07-23] MEDS: AMPICILLIN NA/SULBACTAM NA 3 GM in SODIUM CHLORIDE 100 ML IVPB SCH (02:26)
[2021-07-23] MEDS ORDERED: MELATONIN 5 MG TABLETS PO PRN (04:26)
[2021-07-23] MEDS: D5-1/2NS+20 MEQ KCL - 20 MEQ/1,000 ML INFUS.BAG IV SCH (05:12)
[2021-07-23 09:51] LABS: HEMATOCRIT 26.8 % (35.4-49); HEMOGLOBIN 8.9 GM/dL (11.7-16.9); MCH 29.3 pg (25.7-33.7); MCHC 33.1 g/dl (32.0-35.9); MEAN CELL VOLUME 88.5 fl (80-96); MEAN PLT VOLUME 7.7 fl (7.5-11.1); PLATELET COUNT 311 10^3/uL (134-434); RBC 3.03 M/mm3 (4.00-5.60); RDW 15.6 % (11.9-15.9); WHITE BLOOD COUNT 7.8 K/mm3 (4.0-10.0)
[2021-07-23] MEDS: PANTOPRAZOLE SODIUM 40 MG VIAL IVPUSH SCH (09:55)
[2021-07-23] MEDS ORDERED: ARIPiprazole 2 MG TABLET PO SCH (10:00)
[2021-07-23] MEDS: amLODIPine BESYLATE 10 MG TABLET (FP) PO SCH (10:04)
[2021-07-23] MEDS: NYSTATIN 100,000 UNIT/GM TOPICAL CREAM 15 GM TUBE TP SCH ×2 (10:04→22:32)
[2021-07-23 10:18] LABS: CALCIUM 7.8 mg/dL (8.5-10.1)
[2021-07-23 10:19] LABS: ALBUMIN 1.9 g/dl (3.4-5.0); MAGNESIUM 1.9 mg/dL (1.8-2.4)
[2021-07-23 10:22] LABS: CREATININE 0.5 mg/dL (0.55-1.3); PHOSPHOROUS 3.2 mg/dL (2.5-4.9)
[2021-07-23 10:23] LABS: BILIRUBIN,TOTAL 0.7 mg/dL (0.2-1); TOT PROT 5.1 g/dl (6.4-8.2)
[2021-07-24] MEDS: D5-1/2NS+20 MEQ KCL - 20 MEQ/1,000 ML INFUS.BAG IV SCH (00:36)
[2021-07-24] MEDS ORDERED: LORazepam 2 MG/ML SDV VIAL IVPUSH ONE (03:20)
[2021-07-24 09:45] LABS: BASO % 1.3 % (0-2.0); HEMATOCRIT 26.3 % (35.4-49); HEMOGLOBIN 9.1 GM/dL (11.7-16.9); LYMPH % 23.3 % (8-40); MCH 30.2 pg (25.7-33.7); MCHC 34.6 g/dl (32.0-35.9); MEAN CELL VOLUME 87.2 fl (80-96); MEAN PLT VOLUME 7.1 fl (7.5-11.1); MONO % 11.3 % (3.8-10.2); NEUT % 63.1 % (42.8-82.8); PLATELET COUNT 354 10^3/uL (134-434); RBC 3.02 M/mm3 (4.00-5.60); RDW 15.4 % (11.9-15.9); WHITE BLOOD COUNT 7.9 K/mm3 (4.0-10.0)
[2021-07-24] MEDS: PANTOPRAZOLE SODIUM 40 MG VIAL IVPUSH SCH (09:46)
[2021-07-24] MEDS: NYSTATIN 100,000 UNIT/GM TOPICAL CREAM 15 GM TUBE TP SCH ×2 (09:47→21:12)
[2021-07-24] MEDS: amLODIPine BESYLATE 10 MG TABLET (FP) PO SCH (09:47)
[2021-07-24 10:48] LABS: BLOOD UREA NITROGEN 3.4 mg/dL (7-18)
[2021-07-24 10:51] LABS: CREATININE 0.5 mg/dL (0.55-1.3)
[2021-07-25] MEDS ORDERED: ONDANSETRON 4 MG/2 ML VIAL IVPUSH ONE (01:41)
[2021-07-25] MEDS: PANTOPRAZOLE SODIUM 40 MG VIAL IVPUSH SCH (09:42)
[2021-07-25] MEDS: amLODIPine BESYLATE 10 MG TABLET (FP) PO SCH (09:42)
[2021-07-25] MEDS: NYSTATIN 100,000 UNIT/GM TOPICAL CREAM 15 GM TUBE TP SCH (09:42)
[2021-07-25 09:45] LABS: HEMATOCRIT 26.4 % (35.4-49); HEMOGLOBIN 9.1 GM/dL (11.7-16.9); MCH 30.2 pg (25.7-33.7); MCHC 34.4 g/dl (32.0-35.9); MEAN CELL VOLUME 87.9 fl (80-96); MEAN PLT VOLUME 7.2 fl (7.5-11.1); PLATELET COUNT 363 10^3/uL (134-434); RDW 15.7 % (11.9-15.9); WHITE BLOOD COUNT 8.2 K/mm3 (4.0-10.0)
[2021-07-25 10:06] LABS: CHLORIDE 104 mmol/L (98-107); SODIUM 137 mmol/L (136-145)
[2021-07-25 10:07] LABS: CALCIUM 7.8 mg/dL (8.5-10.1)
[2021-07-25 10:08] LABS: ANION GAP 6 MMOL/L (8-16); CO2 27 mmol/L (21-32); GLUCOSE,RANDOM 78 mg/dL (74-106)
[2021-07-25 10:11] LABS: CREATININE 0.5 mg/dL (0.55-1.3)
[2021-07-25 10:16] LABS: BLOOD UREA NITROGEN 2.9 mg/dL (7-18)
[2021-07-25] MEDS: MINERAL OIL/PET HY-PHL TOPICAL OINTMENT 454 GM JAR TP SCH (14:24)
[2021-07-26] MEDS: NYSTATIN 100,000 UNIT/GM TOPICAL CREAM 15 GM TUBE TP SCH ×3 (00:24→22:00)
[2021-07-26 08:53] LABS: MCH 29.5 pg (25.7-33.7); MCHC 33.2 g/dl (32.0-35.9); MEAN CELL VOLUME 88.9 fl (80-96); MEAN PLT VOLUME 7.3 fl (7.5-11.1); PLATELET COUNT 364 10^3/uL (134-434); RBC 3.03 M/mm3 (4.00-5.60); RDW 16.2 % (11.9-15.9); WHITE BLOOD COUNT 6.4 K/mm3 (4.0-10.0)
[2021-07-26] MEDS: amLODIPine BESYLATE 10 MG TABLET (FP) PO SCH (09:08)
[2021-07-26] MEDS: MINERAL OIL/PET HY-PHL TOPICAL OINTMENT 454 GM JAR TP SCH (09:10)
[2021-07-26 09:19] LABS: CHLORIDE 103 mmol/L (98-107); SODIUM 137 mmol/L (136-145)
[2021-07-26 09:21] LABS: CALCIUM 8.5 mg/dL (8.5-10.1)
[2021-07-26 09:22] LABS: ANION GAP 7 MMOL/L (8-16); CO2 27 mmol/L (21-32); GLUCOSE,RANDOM 80 mg/dL (74-106)
[2021-07-26 09:25] LABS: CREATININE 0.5 mg/dL (0.55-1.3)
[2021-07-26 09:28] LABS: BLOOD UREA NITROGEN 2.2 mg/dL (7-18)
[2021-07-26] MEDS: PANTOPRAZOLE SODIUM 40 MG VIAL IVPUSH SCH (12:00)
[2021-07-26] MEDS: HEPARIN NA (PORCINE) 5,000 UNITS/ML 1ML VIAL SQ SCH (21:58)
[2021-07-27] MEDS: HEPARIN NA (PORCINE) 5,000 UNITS/ML 1ML VIAL SQ SCH ×3 (05:56→21:05)
[2021-07-27 07:54] LABS: HEMATOCRIT 27.8 % (35.4-49); HEMOGLOBIN 9.4 GM/dL (11.7-16.9); MCHC 33.9 g/dl (32.0-35.9); MEAN CELL VOLUME 88.6 fl (80-96); MEAN PLT VOLUME 7.2 fl (7.5-11.1); PLATELET COUNT 351 10^3/uL (134-434); RBC 3.13 M/mm3 (4.00-5.60); RDW 16.2 % (11.9-15.9); WHITE BLOOD COUNT 7.1 K/mm3 (4.0-10.0)
[2021-07-27 08:10] LABS: CALCIUM 8.4 mg/dL (8.5-10.1)
[2021-07-27 08:11] LABS: BLOOD UREA NITROGEN 5.4 mg/dL (7-18); MAGNESIUM 2.2 mg/dL (1.8-2.4)
[2021-07-27 08:14] LABS: CREATININE 0.5 mg/dL (0.55-1.3); PHOSPHOROUS 4.3 mg/dL (2.5-4.9)
[2021-07-27] MEDS: NYSTATIN 100,000 UNIT/GM TOPICAL CREAM 15 GM TUBE TP SCH ×2 (09:24→21:06)
[2021-07-27] MEDS: amLODIPine BESYLATE 10 MG TABLET (FP) PO SCH (09:24)
[2021-07-27] MEDS: PANTOPRAZOLE 40 MG TABLET PO SCH ×2 (09:24→09:28)
[2021-07-27] MEDS: MINERAL OIL/PET HY-PHL TOPICAL OINTMENT 454 GM JAR TP SCH (09:25)
[2021-07-27] MEDS ORDERED: ACETAMINOPHEN 325 MG TABLET (FP) PO PRN (12:12)
[2021-07-27 15:29] LABS: EPI CELLS 22 /uL (0-25.1); HYALINE CASTS 8 /uL (0-3.1); URINE APPEARANCE CLEAR; URINE BACTERIA 2440 /uL (0-1359); URINE BILIRUBIN NEGATIVE (NEGATIVE); URINE COLOR DK YELLOW; URINE GLUCOSE (UA) NEGATIVE (NEGATIVE); URINE KETONE 2+ (NEGATIVE); URINE LEUK ESTERASE NEGATIVE (NEGATIVE); URINE NITRITE POSITIVE (NEGATIVE); URINE PROTEIN NEGATIVE (NEGATIVE); URINE RBC 13 /uL (0-23.9); URINE WBC 47 /uL (0-25.8)
[2021-07-28] MEDS: HEPARIN NA (PORCINE) 5,000 UNITS/ML 1ML VIAL SQ SCH ×3 (05:48→21:05)
[2021-07-28] MEDS: PANTOPRAZOLE 40 MG TABLET PO SCH (09:11)
[2021-07-28] MEDS: NYSTATIN 100,000 UNIT/GM TOPICAL CREAM 15 GM TUBE TP SCH ×2 (09:11→21:05)
[2021-07-28] MEDS: MINERAL OIL/PET HY-PHL TOPICAL OINTMENT 454 GM JAR TP SCH (09:11)
[2021-07-28] MEDS: amLODIPine BESYLATE 10 MG TABLET (FP) PO SCH (09:11)
[2021-07-29] MEDS: HEPARIN NA (PORCINE) 5,000 UNITS/ML 1ML VIAL SQ SCH ×3 (06:05→21:33)
[2021-07-29 09:25] LABS: BASO % 1.9 % (0-2.0); EOS % 1.7 % (0-4.5); HEMOGLOBIN 9.7 GM/dL (11.7-16.9); LYMPH % 32.3 % (8-40); MCH 29.6 pg (25.7-33.7); MCHC 33.5 g/dl (32.0-35.9); MEAN CELL VOLUME 88.4 fl (80-96); MEAN PLT VOLUME 7.2 fl (7.5-11.1); MONO % 12.7 % (3.8-10.2); NEUT % 51.4 % (42.8-82.8); PLATELET COUNT 333 10^3/uL (134-434); RBC 3.28 M/mm3 (4.00-5.60); RDW 15.5 % (11.9-15.9); WHITE BLOOD COUNT 5.5 K/mm3 (4.0-10.0)
[2021-07-29 09:43] LABS: BLOOD UREA NITROGEN 7.3 mg/dL (7-18); CALCIUM 8.9 mg/dL (8.5-10.1)
[2021-07-29 09:46] LABS: CREATININE 0.6 mg/dL (0.55-1.3)
[2021-07-29 09:48] LABS: BILIRUBIN,TOTAL 0.3 mg/dL (0.2-1)
[2021-07-29 09:53] LABS: ALBUMIN 2.5 g/dl (3.4-5.0)
[2021-07-29] MEDS ORDERED: THIAMINE HCL 200 MG/2 ML VIAL IVPB ONE (10:40)
[2021-07-29] MEDS: PANTOPRAZOLE 40 MG TABLET PO SCH (10:54)
[2021-07-29] MEDS: amLODIPine BESYLATE 10 MG TABLET (FP) PO SCH (10:54)
[2021-07-29] MEDS: MINERAL OIL/PET HY-PHL TOPICAL OINTMENT 454 GM JAR TP SCH (12:08)
[2021-07-29] MEDS: NYSTATIN 100,000 UNIT/GM TOPICAL CREAM 15 GM TUBE TP SCH ×2 (12:08→21:33)
[2021-07-30] MEDS: HEPARIN NA (PORCINE) 5,000 UNITS/ML 1ML VIAL SQ SCH ×2 (06:17→15:33)
[2021-07-30 09:03] LABS: HEMATOCRIT 29.3 % (35.4-49); HEMOGLOBIN 9.8 GM/dL (11.7-16.9); MCH 29.7 pg (25.7-33.7); MCHC 33.4 g/dl (32.0-35.9); MEAN CELL VOLUME 88.9 fl (80-96); MEAN PLT VOLUME 7.5 fl (7.5-11.1); PLATELET COUNT 354 10^3/uL (134-434); RDW 15.4 % (11.9-15.9); WHITE BLOOD COUNT 5.5 K/mm3 (4.0-10.0)
[2021-07-30 09:15] LABS: CALCIUM 8.3 mg/dL (8.5-10.1)
[2021-07-30 09:16] LABS: ALBUMIN 2.6 g/dl (3.4-5.0); BLOOD UREA NITROGEN 8.5 mg/dL (7-18)
[2021-07-30 09:19] LABS: CREATININE 0.6 mg/dL (0.55-1.3)
[2021-07-30 09:21] LABS: BILIRUBIN,TOTAL 0.4 mg/dL (0.2-1); TOT PROT 6.1 g/dl (6.4-8.2)
[2021-07-30] MEDS: MULTIVITAMINS (DAILY MVI) TABLET (FP) PO SCH (11:27)
[2021-07-30] MEDS: MINERAL OIL/PET HY-PHL TOPICAL OINTMENT 454 GM JAR TP SCH (11:28)
[2021-07-30] MEDS: amLODIPine BESYLATE 10 MG TABLET (FP) PO SCH (11:28)
[2021-07-30] MEDS: NYSTATIN 100,000 UNIT/GM TOPICAL CREAM 15 GM TUBE TP SCH (11:28)
[2021-07-30] MEDS: THIAMINE HCL 100 MG TABLET (FP) PO SCH (11:28)
[2021-07-30] MEDS: PANTOPRAZOLE 40 MG TABLET PO SCH (11:28)
[2021-07-30 13:07] LABS: SARS-CoV-2 NAA Not Detected (Not Detected)
[2021-07-31] MEDS: THIAMINE HCL 100 MG TABLET (FP) PO SCH ×2 (00:01→09:40)
[2021-07-31] MEDS: HEPARIN NA (PORCINE) 5,000 UNITS/ML 1ML VIAL SQ SCH ×3 (06:10→14:26)
[2021-07-31] MEDS: amLODIPine BESYLATE 10 MG TABLET (FP) PO SCH (09:39)
[2021-07-31] MEDS: PANTOPRAZOLE 40 MG TABLET PO SCH (09:40)
[2021-07-31] MEDS: MULTIVITAMINS (DAILY MVI) TABLET (FP) PO SCH (09:40)
[2021-07-31] MEDS: MINERAL OIL/PET HY-PHL TOPICAL OINTMENT 454 GM JAR TP SCH (09:41)
[2021-07-31] MEDS: NYSTATIN 100,000 UNIT/GM TOPICAL CREAM 15 GM TUBE TP SCH ×2 (09:41)
[2021-07-31 14:59] VITALS: BP 112/77; PULSE 114; TEMP 98.3
== END 2021-07-31 19:01 | DRG 775 ==
LOC: JER 06:58 → EDBD 07:50 → JERBED 07:50 → JICU 15:10 → J5S 07-15 04:12 → JICU 07-16 14:38 → J8W 07-21 17:52
PROVIDERS: ADMIT Internal Medicine; ATTEND Internal Medicine
PROC: 5A1945Z Respiratory Ventilation, 24-96 Consecutive Hours (ICD-10-PCS; principal; 2021-07-16)
PROC: 0BH17EZ Insertion of Endotracheal Airway into Trachea, Via Natural or Artificial Opening (ICD-10-PCS; 2021-07-16)
PROC: 05HN33Z Insertion of Infusion Device into Left Internal Jugular Vein, Percutaneous Approach (ICD-10-PCS; 2021-07-16)
PROC: B544ZZA Ultrasonography of Left Jugular Veins, Guidance (ICD-10-PCS; 2021-07-16)
DX: F10.239 Alcohol dependence with withdrawal, unspecified (principal); J69.0 Pneumonitis due to inhalation of food and vomit; J96.01 Acute respiratory failure with hypoxia; E87.3 Alkalosis; G92.8 Other toxic encephalopathy; R13.10 Dysphagia, unspecified; I95.9 Hypotension, unspecified; M62.82 Rhabdomyolysis; E87.1 Hypo-osmolality and hyponatremia; E87.6 Hypokalemia; R41.82 Altered mental status, unspecified; R45.1 Restlessness and agitation; R68.0 Hypothermia, not associated with low environmental temperature; D69.6 Thrombocytopenia, unspecified; I16.0 Hypertensive urgency; E83.42 Hypomagnesemia; N17.9 Acute kidney failure, unspecified; D64.9 Anemia, unspecified; E86.1 Hypovolemia
CPT/HCPCS: 36415; 36600; 70450-TC; 71045-TC-FY; 71260-TC; 72125-TC; 74177-TC; 74230-TC-FY; 76700-TC; 80048; 80053; 80307; 81003; 82140; 82272; 82436; 82550; 82553; 82607; 82728; 82747; 82803; 82962; 83036; 83540; 83550; 83605; 83735; 83880; 83930; 83935; 84100; 84300; 84443; 84484; 85014; 85025; 85027; 85610; 85730; 86850; 86900; 86901; 87040; 87070; 87086; 87205; 87804; 87899; 92611-GN; 93005; 93010; 93306-TC; 94002; 94640; 97116-GP; 97161-GP; 99291; 99292; C9803-CS; G0480; J1644; J2997; U0003; U0005